=== PATIENT | female | born 1945 | race Caucasian/White ===

== ENCOUNTER 2024-09-18 16:31 | Inpatient (IN) | payer OTHER ==
[2024-09-19] MEDS: lamoTRIgine 25 MG TAB PO SCH (20:00)
[2024-09-19] MEDS ORDERED: LANTUS 30 UNIT SQ SCH (20:00)
[2024-09-19] MEDS ORDERED: AMLODIPINE 2.5 MG TAB PO SCH (21:00)
[2024-09-19] MEDS ORDERED: INSULIN REGULAR (HUMAN) 100 UNIT/ML SQ SCH (21:00)
[2024-09-19] MEDS: INSULIN GLARGINE 100 UNIT/ML SQ SCH (21:13)
[2024-09-19] MEDS: MINOCYCLINE HCL 50 MG CAP PO SCH (21:14)
[2024-09-19] MEDS: APIXABAN 2.5 MG TABLET PO SCH (21:14)
[2024-09-19] MEDS: PREGABALIN 75 MG CAP PO SCH (21:14)
[2024-09-19] MEDS: FERROUS SULFATE 325 MG TAB PO SCH (21:15)
[2024-09-19] MEDS: MELATONIN 3 MG TABLET PO SCH (21:15)
[2024-09-19] MEDS: ATORVASTATIN 80 MG TAB PO SCH (21:15)
[2024-09-20 00:38] LABS: Sqamous Epithelial <5 /HPF (None Seen); Urine Culture Reflex Order NOT NEEDED; Urine Microscopic Reflex YN ORDER UMIC; Urine WBC Clump Rare /HPF (None Seen)
[2024-09-20 06:44] LABS: Absolute Lymphocytes (CBC) 3.2 K/uL (0.7-4.9); Albumin 2.5 g/dL (3.4-5.0); Anion Gap 9.5 mEq/L (5.0-15.0); BUN Blood Urea Nitrogen 56.0 mg/dL (7-18); Glucose Level 197.0 mg/dL (74-106); Hematocrit 25.2 % (36.0-45.0); Hemoglobin 8.4 g/dL (12.0-15.0); MCH 28.8 pg (27.0-35.0); MCHC 33.6 g/dL (32.0-36.0); MCV 86.0 fL (80-100); MPV 8.3 fL (7.6-11.3); Magnesium 2.1 mg/dL (1.6-2.4); NT PRO-BNP 1436.0 pg/mL (<450); Nucleated RBC Absolute Count 0.0 (0-0); Nucleated Red Blood Cells % 0.1 % (0-0); Potassium 4.5 mEq/L (3.5-5.1); Prealbumin 14.0 mg/dL (20-40); RBC Red Blood Cell Count 2.93 M/uL (3.86-4.86); White Blood Count 9.00 thou/uL (4.3-10.9)
[2024-09-20] MEDS: LEVOTHYROXINE SOD 0.05 MG TABLET PO SCH (07:00)
[2024-09-20] MEDS: INSULIN REGULAR (HUMAN) 100 UNIT/ML SQ SCH (07:30)
[2024-09-20] MEDS ORDERED: CLOPIDOGREL 75 MG TABLET PO SCH (08:00)
[2024-09-20] MEDS: THIAMINE HCL 100 MG TABLET PO SCH (09:07)
[2024-09-20] MEDS: ASPIRIN 81 MG CHEWABLE TABLET PO SCH (09:07)
[2024-09-20] MEDS: AMLODIPINE 5 MG TAB PO SCH (09:07)
[2024-09-20] MEDS: PANTOPRAZOLE 40MG TABLET PO SCH (09:07)
[2024-09-20] MEDS: ISOSORBIDE MONO SR 30 MG TAB PO SCH (09:07)
[2024-09-20] MEDS: DULOXETINE 30 MG CAP PO SCH (09:08)
[2024-09-20] MEDS: TRAZODONE 50 MG TABLET PO SCH (21:10)
[2024-09-20] MEDS: HYDROCODONE/APAP 5/325 MG TAB PO PRN (21:12)
--- NOTE | 2024-09-21 05:34 | HP ---
Date of Admission: 09/19/2024 Time Of Service: 1:00 p.m. Chief Complaint: "I had a stroke. I have lost coordination, fall to the right. I need to get stron evan." History Of Present Illness: Ms. Collado is a 79-year-old patient with CHF, diabetes mellitus, dyslipi demia, hypertension, chronic stage 3 kidney disease and prior stroke, who is now in inpatient rehab w ith a right posterior inferior cerebellar artery infarct, which occurred in January 2024. She of co onelia had multiple stroke risk factors and comorbid conditions. Initially after her stroke, she was discharged to half-way facility where she completed a course of therapy before returning home with home health services. Despite these interventions, she experienced progressive functional decl ine leading to multiple hospitalizations over 6 months due to decrease in the mobility and debility. She was eventually discharged from Home Health with limited progress attributed to her complex medic al conditions. While pending an approval for inpatient rehabilitation, she saw chief medical technologist, Dr. Ritchie shin, and was advised to have a pacemaker placed. Pacemaker was placed on the September 07 without complica tions. She is currently in an arm sling per Dr. Medina and is able to actively participate rehabilita tion and will be discharged with the use of the sling. She is restricted to not lift anything above 10 pounds with the left arm. Furthermore, her medical course has been complicated and on September 17 at [facility], she had multiple falls and was diagnosed with urinary tract infection. She receiv ed IV Rocephin for 7 days ending on the September 20. Chest x-rays were negative. Hemoglobin and hem atocrit did show moderately low hemoglobin of 7.2 and she has chronic renal insufficiency with BUN 62 , creatinine baseline around 1.5-6. She had mildly elevated sugars 149. Given her medical issues, tanya oakley need to be monitored and addressed during aggressive inpatient rehabilitation. Regarding the stroke, she does have nausea, dizziness, difficulty with balance, coordination given he r stroke is on the right posterior circulation and affecting her coordination, balance, and gait. Edward hernandez has significant functional limitations with multiple falls and inability to perform any activities of daily living such as cooking, cleaning, laundry due to significant imbalance and high risk of fall ing. Ambulation is unsafe as she falls about 3-5 times weekly. She has had some episodes of in her bed trauma, but none resulted in bleeding. She has now had evaluation by the therapy service, referr ed for inpatient rehabilitation by her neurologist, Dr. Jcarlos Klein, after exhausting outpatient ther apy and Home Health to return to her prior level of functioning and to reduce her risk of falling and being able to mobilize safely. She is therefore admitted to the inpatient rehabilitation unit for physical therapy. Past Medical History: As noted above. Past Surgical History: Cholecystectomy, cardiac catheterization, amputation of the left great toe. Allergies: IODINE, MORPHINE, , ONION, AND DIAZEPAM. Current Medications: Norvasc 5 mg daily, Eliquis 2.5 mg twice daily, aspirin 81 mg daily, Lipitor 80 mg at bedtime, Coreg 6.25 mg twice daily, duloxetine 30 mg daily, ferrous sulfate 325 mg daily, Norc o 5/325 every 4 hours as needed, Semglee insulin 30 units twice daily, Imdur 30 mg daily, Lamictal 25 mg twice daily, Synthroid 0.05 mg daily, melatonin 6 mg at bedtime, minocycline 100 mg twice daily, Protonix 40 mg daily, Lyrica 75 mg at bedtime, thiamine 100 mg daily, and trazodone 25 mg at bedtime. Laboratory Studies: White blood cell count 9.0, hemoglobin 8.4, platelets 205. Her basic metabolic panel, sodium 145, potassium 4.4, chloride 117, carbon dioxide 23, BUN 56, creatinine 2.45. Now, she was followed by Dr. Whelan for few years for renal insufficiency. She will be consulted to help wi th management. Her blood sugars ranged from 158 to 197. Hemoglobin A1c 7.3. Calcium 8.7. Magnesiu m 2.1. Beta-natriuretic peptide elevated to 1436. Albumin decreased to 2.5, prealbumin decreased to 14.0. Her urinalysis, 1+ glucose, 200 esterases. X-ray/imaging: She had an MRI of the brain on 05/13/2024, which shows no acute stroke. Evident was old infarct in the right cerebellar hemisphere with volume loss. She also had x-ray of the left foot and ankle on showed no acute bony abnormalities. Family History: Noncontributory. Social History: No alcohol, tobacco, or drug use. The patient intends to go back and live independe ntly in single family home. Review of Systems: She noticed falling to the right, incoordination in balance and problems to some nausea and vomiting. In terms of some unsteadiness of course and coordination, especially in the right upper and lower e xtremities. In terms of other review of systems issues, no fevers or chills. No significant myalgia s, arthralgias. No rash. No dermatological issues or pulmonary, GI, or big complaints currently, although she has a renal insufficiency as noted. Current Level Of Functioning: Currently, she is setup assistance for eating, grooming. She has mode rate assistance for bathing, supervision for upper body dressing, moderate assistance for lower body dressing and donning and doffing footwear. Toileting, she is at a supervision level. Transfers from bed to chair, to wheelchair, supervision and for ambulation, she covered 50 feet with supervision us ing a rolling walker. Physical Examination: Vital Signs: Blood pressure is 139/69, pulse 60, respiratory rate 16, temperature 97.7, oxygen satur ation 97%. Weight 196 pounds, height 5 feet 4 inches, BMI 23.6. General: Ms. Collado is lying in bed on her left side. She is in no acute distress. HEENT: She does appear normocephalic, atraumatic. Sclerae anicteric. Oropharynx pink and moist. Neck: Supple. Chest: Clear. Heart: Regular. Neurological: She has incoordination with dysmetria, past-pointing in the right and lower extremity, difficulty with [id number] in the right lower extremity and otherwise in terms of cranial nerves n o obvious focal deficits there. She has good strength and intact sensation upper and lower extremiti es. Rehab And Medical Assessment And Plan: Ms. Collado is a 79-year-old patient admitted to the inpatient rehabilitation unit with impairment category 01, stroke. Impairment group code is 01.1, left body i nvolvement right brain. Etiologic diagnosis, right posterior inferior cerebral artery stroke. Her c omorbid conditions, decreased mobility; decreased physical functioning; CHF, diastolic; diabetes daina itus; dyslipidemia; hypertension; chronic stage 3 kidney disease. Note, she has had urinary tract in fection and received Rocephin, although a repeat urinalysis done. In terms of plan, she will have ph ysical, occupational, and if need be speech therapy 3.5 hours, 5 of 7 days. She will continue list o f medications, which have been noted above including Eliquis 2.5 mg twice daily for DVT prophylaxis, aspirin 81 mg daily for stroke risk reduction, Lipitor 80 mg at bedtime for dyslipidemia. Continue N orvasc for blood pressure control, Harvey for pain, Coreg also for blood pressure control, Cymbalta fo r neuropathic pain, ferrous sulfate for iron deficiency, Semglee insulin as noted 30 units subcutaneo usly twice daily for diabetes mellitus, Imdur for chest discomfort and pain, Lamictal 25 mg twice blaze ly for mood stabilization, Synthroid 0.05 mg daily for hypothyroidism, melatonin for insomnia along w ith trazodone, which she said she had some difficulty sleeping last night. She has Lyrica 75 mg twic e daily for neuropathic pain. She has Protonix for GE reflux, thiamine 100 mg daily. Comorbidities That Are Impacting Rehabilitation: Of course, the biggest issue is a stroke from which she has incoordination especially on the right side, the right cerebellum involved. She does have d iabetes mellitus as noted. She has chronic renal insufficiency. Dr. Whelan of the renal service wi ll see the patient, will be consulted to help her management. Rehab Specific Plan: Ms. Collado will have physical, occupational, and maybe speech therapy 3.5 hours , 5 of 7 days to improve her ability to transfer from the bed to a wheelchair, to a rolling walker. She will go on and off the toilet, in and out of shower. Work on dressing of upper and lower body, d onning and doffing footwear. Work on incoordination and difficulty of mobilizing as she has fallen 3 -5 times weekly from the right cerebellar stroke. It may be difficult for her to be able to be indep endent without the use of assistive device such as a walker, but it will be highly encouraged. Ms. Collado has a good understanding of the process of admission to the inpatient rehabilitation unit and how she will benefit from physical, occupational, and if need be speech therapy. She will have 2 4 hours a day, 7 days a week skilled rehabilitation nursing, daily physician evaluation and managemen t, and licensed clinical social worker evaluation and management for discharge planning, home equipment, and to cassius nue with therapy. If need be, the hospitalist service and already the renal service is on board. Barriers To Discharge: Occasionally falling significantly and the stroke was in January. At this p oint, it may be very difficult for her to be fully independent as she is now 8 months out of the [facility] and still has significant incoordination. However, with very aggressive therapy, she may be able to improve and become safe for ambulation. Length Of Stay: About 2 weeks. Disposition: Expected to go home with continued therapy via Home Health. Prognosis: Good. Code Status: Full code. Rehab Specific Goals: 1. Become independent with upper and lower body dressing and donning doffing footwear. 2. Independently perform activities of daily living. 3. Independently mobilize a wheelchair 250 feet, ambulate with a rolling walker 250 feet, and go up a nd down 10 steps with bilateral handrails. 4. Independently perform all cognitive functioning and safety awareness issues and like to manage all medical conditions, optimization. The above goals were reviewed with Ms. Collado and she is in agreement. By signing this document, I acknowledge I personally performed a full physical examination on Ms. Lebron no later than 24 hours after her admission to the inpatient rehabilitation unit and determined th at she is able to tolerate the above course of treatment at an intensive level for reasonable period of time. A detailed individualized plan of care for her will be completed by hospital day 4 based on the preadmission screen, history and physical, and therapy evaluation. MEKA Voice ID: [id number]
--- NOTE | 2024-09-21 20:30 | P.PN ---
Nephrology note (S) Pls see my recent consult note at [facility] done on 09/14/24 for full details, pt well known to service and is Dr. Whelan's clinic pt and has had several hospitalizations over the past 1.5 years and appears to have been sent to [facility] rehab in the setting of recent falls, hx of dizziness, gait instability following CVA late last yr and with long standing diabetic hakeem yneuropathy/autonomic dysfunction, other (O) vitals reviewed in the EMR Pt seen lying in bed earlier this AM on rounds, NAD, non tachypnec, not needing O2, b/l air entry, no rales, RRR, left upper PPM site without swelling or redness. Abd soft, ND, NT. No sig LE edema, shins non tender. Pt awake, alert, conversive, non tremulous Labs reviewed in the EMR A/P) 1. Hx of recent and recurrent Stage 1 AICHA episodes in the setting of chronic, underlying advanced CKD Stage IV 2nd to chronic DM/HTN. AICHA episodes mostly pre- renal episodes in the setting of chronic diuretic use, relative BP lowering, o ther. 2. Cr level closer to baseline range, cont to monitor periodically 3. Chronic HTN with CKD -hx of labile BP, monitor for any orthostatic symptoms. Cont lower dose CCB, use holding parameters. Have avoided LEDY inhibitors due to the above mentioned. With hx of CVA, target BP at least < 140/90 4. Hx of diastolic dysfunction, hx of intermittent, peripheral edema -monitor fluid status closely, cont low Na diet, currently off scheduled diuretics 5. Anemia 2nd to CKD and iron deficiency -IV iron doses ordered at [facility], will order TEETEE dose here since Hb remains < 10
--- NOTE | 2024-09-22 00:10 | PN ---
Date of Progress Note: 09/21/2024 Time Of Service: 1:15 p.m. Subjective: Ms. Collado is doing very well. Had lots of questions about her progress. She is admitt ed with right posterior inferior cerebral artery stroke and has incoordination on the right side of u pper and lower extremity, but otherwise had preserved strength. Questions were discussed at length a nd the patient was happy at the end of discussion. Review of Systems: No fevers, chills, nausea, vomiting. No myalgias, arthralgias, or rash. No psychiatric complaints. Physical Examination: Vital Signs: Blood pressure 137/59, pulse 60, respiratory rate 18, temperature 97.2, oxygen saturati on 96%. Weight 196 pounds, height 5 feet 4 inches, BMI 33.6. General: Ms. Collado is in the gym area working with the occupational therapist. She is in no signif icant distress. HEENT: She is normocephalic, atraumatic. Sclerae anicteric. Neuro: She has incoordination in the right upper and lower extremity involving her stroke and diffic ulty with balance, gait, coordination. Laboratory Studies: White blood cell count 9.0, hemoglobin 8.4, platelets 205, blood sugars range fr om 109 to 155. X-ray/imaging: No new x-rays or imaging. Medications: Willis 5/325 every 4 hours as needed, amlodipine 5 mg daily, Eliquis 2.5 mg twice daily, aspirin 81 mg daily, Lipitor 80 mg at bedtime, Coreg 6.25 mg twice daily, Cymbalta 30 mg daily, ferr ous sulfate 325 mg daily, Semglee insulin 30 units twice daily, Imdur 30 mg daily, Lamictal 25 mg twi ce daily, Synthroid 0.05 mg daily, lidocaine 2 patches daily, melatonin 6 mg at bedtime, minocycline 100 mg twice daily. She is followed by Dr. Ramos and the patient was seen by Dr. Ramos on the Renal Service and is follow ed for diabetic polyneuropathy, autonomic dysfunction, and has stage I acute renal injury on top of c hronic stage IV renal injury. Progress Made With Physical And Occupational Therapy: With physical therapy, she completed bed mobil ity including turning in bed, supine to sit, and scooting with contact guard to standby assistance. She ambulated 200 feet and another 175 feet with contact guard to standby assistance using a rolling walker. She was up and down 15 steps with contact guard assistance. She has shortness of breath aft er the 15 steps. She mobilized a wheelchair 150 feet and 100 feet 3 times with contact guard to mini mum assistance on surfaces. With occupational therapy, independent with bed transfers, si t-to-stand transition, and she was contact guard for using the walker. Assessment And Plan: Ms. Collado is a 79-year-old patient in rehabilitation unit with a right posteri or inferior cerebral artery stroke. She is making fair overall progress in terms of recovery of her coordination, balance, gait, strength, and endurance. She is followed by the Renal Service for chron ic stage 4 kidney disease. She still has decreased mobility, decreased physical functioning, hypothy roidism, insomnia, constipation, diabetes mellitus, depression, anxiety, dyslipidemia, stroke risk, a nd pain. Her plan will be to continue with physical and occupational therapy. Continue with all of her comorbid condition medications and she is also by the Renal Service. MICKY/SEYMOUR Voice ID: [id number] Report ID: [id number]
[2024-09-22 05:33] LABS: Absolute Lymphocytes (CBC) 3.0 K/uL (0.7-4.9); Hematocrit 21.8 % (36.0-45.0); Hemoglobin 7.3 g/dL (12.0-15.0); MCH 29.3 pg (27.0-35.0); MCHC 33.6 g/dL (32.0-36.0); MCV 87.1 fL (80-100); MPV 8.3 fL (7.6-11.3); Nucleated RBC Absolute Count 0.0 (0-0); Nucleated Red Blood Cells % 0.0 % (0-0); RBC Red Blood Cell Count 2.50 M/uL (3.86-4.86); White Blood Count 9.20 thou/uL (4.3-10.9)
[2024-09-22 06:02] LABS: Albumin 2.5 g/dL (3.4-5.0); Anion Gap 9.2 mEq/L (5.0-15.0); BUN Blood Urea Nitrogen 69.0 mg/dL (7-18); Glucose Level 173.0 mg/dL (74-106); Magnesium 2.3 mg/dL (1.6-2.4); Potassium 4.2 mEq/L (3.5-5.1); Prealbumin 13.4 mg/dL (20-40)
[2024-09-22] MEDS: FE SULF/FA/VIT B COMP & C TAB PO SCH (08:17)
[2024-09-22] MEDS: EPOETIN ALFA-EPBX 10,000 UNIT/ML VIAL SQ ONE ×2 (08:19→08:20)
[2024-09-22] MEDS: LIDOCAINE 4% PATCH TOP SCH (08:19)
--- NOTE | 2024-09-22 23:35 | PN ---
Date of Progress Note: 09/22/2024 Time: 1:10 p.m. Subjective: Ms. Collado is doing very well, mobilizing around the unit. Her coordination, balance, a nd gait are improving. She has no new complaints. She is so far happy. Review of Systems: No fevers, chills, nausea, vomiting, myalgias, arthralgias. Physical Examination: Vital Signs: Blood pressure 140/58, pulse 69, respiratory rate 18, temperature 98, oxygen saturation 98%. General: Ms. Collado is doing well. She is in no significant distress. HEENT: She appears normocephalic, atraumatic. Sclerae anicteric. Oropharynx moist. Neck: Supple. Chest: Clear. Laboratory Studies: White blood cell count 9.2, hemoglobin 7.3, platelets are 180. Potassium 4.2, s odium 141, chloride 113, BUN 69, creatinine 2.65, glucose ranged from 89 to 173, calcium 8.2. Magnes ium 2.3. Albumin 2.5, prealbumin 30.4. The patient is being followed by the renal service, Dr. Ramos. The patient at this point, there is a question about potential dialysis and placement of a central access that will be likely done after t he patient is discharged. It is noted that her creatinine has been stable for at least 2 years when looking back in the chart. X-rays/imaging: No new x-rays or imaging. Medications: Have been reviewed and remain unchanged. She of course has a lidocaine patch on board for pain and she completed minocycline 100 mg twice daily from 09/19 to 09/22, six doses were given. Progress Made With Physical And Occupational Therapy: With physical therapy, she did mobilize with t he rolling walker 200 feet and 300 feet with contact guard assistance. She was up and down 20 steps with bilateral handrails with contact guard assistance and mobilized wheelchair 200 feet and 100 feet with supervision. With occupational therapy, independent for bed mobility from edge of bed transfer ; independent for shower transfers; toilet transfer using grab bars; independent for upper and lower body dressing, donning and doffing footwear. She is doing very well. Assessment And Plan: Ms. Collado is a 79-year-old patient with a right posterior inferior cerebellar artery infarct and she did excellent in terms of recovery. She does have comorbid conditions, mild d ecreased mobility, mild decreased physical functioning, neuropathic pain, hypothyroidism, diabetes me llitus, hypertension, dyslipidemia, stroke risk. Plan will be to continue with physical and occupati onal therapy 3 hours a day, 5 of 7 days. Continue list of comorbid condition medications including a spirin, Eliquis, Norvasc, Coreg, Lehr. She has duloxetine for mood and neuropathy. Lamictal on [address]a rd for mood stabilization. She has Synthroid for hypothyroidism, melatonin for insomnia, Hemocyte Pl us for low iron, Lyrica for neuropathic pain and thiamine on board as well. We will continue all of her medications and therapy as noted above. MICKY/SEYMOUR Voice ID: [id number] Report ID: [id number]
[2024-09-23 04:32] LABS: Absolute Lymphocytes (CBC) 3.0 K/uL (0.7-4.9); Hematocrit 21.3 % (36.0-45.0); Hemoglobin 7.1 g/dL (12.0-15.0); MCH 29.0 pg (27.0-35.0); MCHC 33.4 g/dL (32.0-36.0); MCV 86.8 fL (80-100); MPV 8.5 fL (7.6-11.3); Nucleated RBC Absolute Count 0.0 (0-0); Nucleated Red Blood Cells % 0.0 % (0-0); RBC Red Blood Cell Count 2.46 M/uL (3.86-4.86); White Blood Count 8.70 thou/uL (4.3-10.9)
[2024-09-23] MEDS: LIDOCAINE 4% PATCH TOP SCH (07:54)
[2024-09-23] MEDS ORDERED: ONDANSETRON 4 MG (ODT) TAB PO PRN (09:34)
[2024-09-23] MEDS: ONDANSETRON 4 MG (ODT) TAB PO PRN (09:43)
--- NOTE | 2024-09-23 11:34 | P.PN ---
Nephrology note (S) Pls see my recent consult note at [facility] done on 09/14/24 for full details, pt well known to service and is Dr. Whelan's clinic pt and has had several hospitalizations over the past 1.5 years and appears to have been sent to [facility] rehab in the setting of recent falls, hx of dizziness, gait instability following CVA late last yr and with long standing diabetic hakeem yneuropathy/autonomic dysfunction, other 09/23/24: Pt seen during PT session, appears pale, does cite greater fatigue with exertion today, not needing O2, drop in H/H discussed, apparently pt did get a 1 unit PRBC at [facility] last weekend prior to discharge here. (O) vitals reviewed in the EMR Pt seen lying in bed earlier this AM on rounds, NAD, non tachypnec, not needing O2, b/l air entry, no rales, RRR, left upper PPM site without swelling or redness. Abd soft, ND, NT. No sig LE edema, shins non tender. Pt awake, alert, conversive, non tremulous Labs reviewed in the EMR A/P) 1. Hx of recent and recurrent Stage 1 AICHA episodes in the setting of chronic, underlying advanced CKD Stage IV 2nd to chronic DM/HTN. AICHA episodes mostly pre- renal episodes in the setting of chronic diuretic use, relative BP lowering, other. 2. Cr level closer to baseline range currently, cont to monitor periodically 3. Chronic HTN with CKD -hx of labile BP, monitor for any orthostatic symptoms. Cont lower dose CCB, use holding parameters. Have avoided LEDY inhibitors due to the above mentioned. With hx of CVA, target BP at least < 140/90 4. Hx of diastolic dysfunction, hx of intermittent, peripheral edema -monitor fluid status closely, cont low Na diet, currently off scheduled diuretics 5. Anemia 2nd to CKD and iron deficiency -IV iron doses ordered at [facility], and apparent 1 unit PRBC, did order TEETEE dose here earlier in the week however concerningly H/H has further dropped. Pt is on ASA and Eliquis and has higher risk for GI bleeding. Will send off type and screen, will eval for repeat transfusion within the next 24h. May have to suspend Eliquis if there is recurrent drops in H/H
--- NOTE | 2024-09-23 12:38 | P.RH.PN ---
Estimated Length of Stay: 10 Expected Discharge Date: 09/28/24 Discharge Disposition Plan: Home Family Support: Yes Care Home Goal: Mobility, Transfers, Self Care Vital Signs: Last Vital Signs Temp 98.2 F 09/23/24 07:02 Pulse 62 09/23/24 07:02 Resp 18 09/23/24 07:02 BP 119/43 L 09/23/24 07:02 Pulse Ox 100 09/23/24 07:02 Laboratory: Laboratory Last Values WBC 8.70 thou/uL (4.3-10.9) 09/23/24 04:07 RBC 2.46 M/uL (3.86-4.86) L 09/23/24 04:07 Hgb 7.1 g/dL (12.0-15.0) L 09/23/24 04:07 Hct 21.3 % (36.0-45.0) L 09/23/24 04:07 MCV 86.8 fL (80-100) 09/23/24 04:07 MCH 29.0 pg (27.0-35.0) 09/23/24 04:07 MCHC 33.4 g/dL (32.0-36.0) 09/23/24 04:07 RDW 17.0 % (12.1-15.2) H 09/23/24 04:07 Plt Count 169 thou/uL (152-406) 09/23/24 04:07 MPV 8.5 fL (7.6-11.3) 09/23/24 04:07 Neutrophils % 55.0 % (41.7-73.7) 09/23/24 04:07 Lymphocytes % 34.5 % (15.3-44.8) 09/23/24 04:07 Monocytes % 7.3 % (3.3-12.3) 09/23/24 04:07 Eosinophils % 2.7 % (0-4.4) 09/23/24 04:07 Basophils % 0.5 % (0-1.3) 09/23/24 04:07 Absolute Neutrophils 4.8 K/uL (1.8-8.0) 09/23/24 04:07 Absolute Lymphocytes 3.0 K/uL (0.7-4.9) 09/23/24 04:07 Absolute Monocytes 0.6 K/uL (0.1-1.3) 09/23/24 04:07 Absolute Eosinophils 0.2 K/uL (0-0.5) 09/23/24 04:07 Absolute Basophils 0.0 K/uL (0-0.5) 09/23/24 04:07 Sodium 141 mEq/L (136-145) 09/22/24 04:57 Potassium 4.2 mEq/L (3.5-5.1) 09/22/24 04:57 Chloride 113 mEq/L (98-107) H 09/22/24 04:57 Carbon Dioxide 23 mEq/L (21-32) 09/22/24 04:57 Anion Gap 9.2 mEq/L (5.0-15.0) 09/22/24 04:57 BUN 69 mg/dL (7-18) H 09/22/24 04:57 Creatinine 2.65 mg/dL (0.55-1.02) H 09/22/24 04:57 Est GFR (CKD-EPI) 18 ml/min (=/>90) L 09/22/24 04:57 Glucose 173 mg/dL (74-106) H 09/22/24 04:57 POC Glucose 161 mg/dL (65-120) H 09/23/24 11:35 Hemoglobin A1c 7.3 % (4.2-6.3) H 09/20/24 07:13 Calcium 8.2 mg/dL (8.5-10.1) L 09/22/24 04:57 Magnesium 2.3 mg/dL (1.6-2.4) 09/22/24 04:57 NT-Pro-B Natriuret Pep 1436 pg/mL (<450) H 09/20/24 06:07 Albumin 2.5 g/dL (3.4-5.0) L 09/22/24 04:57 Prealbumin 13.4 mg/dL (20-40) L 09/22/24 04:57 Urine Color Colorless (Yellow) 09/20/24 00:10 Urine Clarity Clear (Clear) 09/20/24 00:10 Urine pH 5.0 (5.0-7.0) 09/20/24 00:10 Ur Specific [place] 1.006 (1.005-1.030) 09/20/24 00:10 Glucose (UA)(Auto) 1+ (Negative) H 09/20/24 00:10 Urine Ketones Negative (Negative) 09/20/24 00:10 Urine Blood Negative (Negative) 09/20/24 00:10 Urine Nitrite Negative (Negative) 09/20/24 00:10 Urine Bilirubin Negative (Negative) 09/20/24 00:10 Urine Urobilinogen Normal (Normal) 09/20/24 00:10 Ur Leukocyte Esterase 250 Ariel/uL (Negative) H 09/20/24 00:10 Urine RBC <5 /HPF (None Seen) 09/20/24 00:10 Urine WBC 5-10 /HPF (<5) 09/20/24 00:10 Urine WBC Clumps Rare /HPF (None Seen) 09/20/24 00:10 Ur Squamous Epith Cells <5 /HPF (None Seen) 09/20/24 00:10 Urine Bacteria <20 /HPF (<20) 09/20/24 00:10 Urine Culture Reflexed Not needed 09/20/24 00:10 Urine Total Protein Negative (Negative) 09/20/24 00:10 Weight: 196 lb Wound Present: No Closed Surgical Incision Present: Yes Physician Update: Labs reviewed. She has low H&H due to chronic. [place]. BIMS 15. Plans to go home with home health. Independent bed mobility, supervision for picking up things. Supervision for car transfers. RW 250' with CGA, WC 200' supervision. 4/4 STG, 2/5 LTG. She still has balance problems. Summary: Patient's care plan and snf goals have been reviewed and revised as necessary. Please see the Rehabilitation Signature page for all necessary signatures.
[2024-09-24 05:09] LABS: Hematocrit 21.9 % (36.0-45.0); Hemoglobin 7.4 g/dL (12.0-15.0); MCH 29.3 pg (27.0-35.0); MCHC 33.6 g/dL (32.0-36.0); MCV 87.2 fL (80-100); MPV 8.4 fL (7.6-11.3); RBC Red Blood Cell Count 2.51 M/uL (3.86-4.86); White Blood Count 7.40 thou/uL (4.3-10.9)
--- NOTE | 2024-09-24 11:32 | P.PN ---
Nephrology note (S) Pls see my recent consult note at [facility] done on 09/14/24 for full details, pt well known to service and is Dr. Whelan's clinic pt and has had several hospitalizations over the past 1.5 years and appears to have been sent to [facility] rehab in the setting of recent falls, hx of dizziness, gait instability following CVA late last yr and with long standing diabetic hakeem yneuropathy/autonomic dysfunction, other 09/23/24: Pt seen during PT session, appears pale, does cite greater fatigue with exertion today, not needing O2, drop in H/H discussed, apparently pt did get a 1 unit PRBC at [facility] last weekend prior to discharge here. 09/24/24: Tired after PT but denies dyspnea, not needing O2, dizziness/gait unsteadiness improved. (O) vitals reviewed in the EMR Pt seen lying in bed earlier this AM on rounds, NAD, non tachypnec, not needing O2, b/l air entry, no rales, RRR, left upper PPM site without swelling or redness. Abd soft, ND, NT. No sig LE edema, shins non tender. Pt awake, alert, conversive, non tremulous Labs reviewed in the EMR A/P) 1. Hx of recent and recurrent Stage 1 AICHA episodes in the setting of chronic, underlying advanced CKD Stage IV 2nd to chronic DM/HTN. AICHA episodes mostly pre- renal episodes in the setting of chronic diuretic use, relative BP lowering, other. 2. Cr level closer to baseline range currently, cont to monitor periodically 3. Chronic HTN with CKD -hx of labile BP, monitor for any orthostatic symptoms. Cont CCB, will cautiously titrate dose to 5 mg BID to address higher BP at times but will use holding parameters. Have avoided LEDY inhibitors due to the above mentioned. With hx of CVA, target BP at least < 140/90 4. Hx of diastolic dysfunction, hx of intermittent, peripheral edema -monitor fluid status closely, cont low Na diet, currently off scheduled diuretics 5. Anemia 2nd to CKD and iron deficiency -IV iron doses ordered at [facility], and apparent 1 unit PRBC, did order TEETEE dose here earlier in the week however con cerningly H/H has further dropped. Pt is on ASA and Eliquis and has higher risk for GI bleeding. DId send off type and screen, will eval for repeat transfusion within the next 24h. May have to suspend Eliquis if there is recurrent drops in H/H
--- NOTE | 2024-09-24 18:44 | P.PN ---
Subjective Date of Service: 09/24/24 Patient has no new complaint. She has been tolerating physical therapy well. She denies any pain. Physical Examination - Vital Signs Temperature: 97.8 F Blood Pressure: 149/60 Pulse: 65 Respirations: 16 Pulse Ox (%): 97 - Studies Laboratory Data (last 24 hrs) 09/24/24 04:47 WBC 7.40 Hgb 7.4 L Hct 21.9 L Plt Count 180 Assessment And Plan - Plan Physical examination General: Alert and oriented x3, NAD, Neck: Supple, no elevated JVD Heart: Heart sounds 1 and 2 normal, regular rhythm, normal rate, no pedal edema Lungs: Clear to auscultation bilaterally, adequate breath sounds bilaterally, no rhonchi or crackles. Abdomen: Soft, nondistended, nontender, normal bowel sounds. Extremities: No tenderness, no deformity Skin: Normal skin turgor, no rash, no nodules or ulcers. Neuro: No focal motor deficit. Normal speech. Psychiatry: Normal mood, no agitation. X-ray/imaging: No new imaging studies. Medications: Her medications have been reviewed today. Progress Made With Physical And Occupational Therapy: pt performed unsupported standing balance activities. pt maintained balance against MIN <-> MOD PT resistance and perturbations. Techniques performed to enhance patient's stepping response as she was unable to elict one yesterday. After train today. pt demonstrated ability to elicit a stepping response in order to effectively recover balance. pt participated in gait training 150' and 300' Independently using a rollator. Emphasis on reduced support on the rollator in order to make movement more smooth. Pt was IND in shower transfer using the grab bar. IND in STS transition and walking with rollator. Pt was MIN A in UB dressing, assist in donning and doffing a bra due to pacemaker precaution, IND in LB dressing and donning and doffing socks. IND in showering task, demonstrated safety awareness using the grab bar when standing/ while standing up. Pt is IND in oral hygiene, toileting task and eating. Pt engaged in hand strengthening activities to improve the use of hands needed in dressing, and other ADL tasks. Pt linked 15 shower rings, linked and unlinked 10 pieces of hook carabs and other links, crumpled 2 half sheets of paper into paper ball and opened them up in each hand. To improve balance, pt completed cross lateral movements of UEs and LE's with support 10x 2 reps. Assessment: Diagnosis:Posterior inferior cerebellar artery infarct Plan: 1. Continue with physical, occupational, and speech therapy for 3.5 hours, 5 of 7 days. 2. She has multiple comorbid conditions and those are addressed by continuing all of her medications including Comorbidities That Are Impacting Her Rehabilitation: neuropathic pain hypothyroidism diabetes mellitus hypertension Dyslipidemia Will continue [place], Lyrica and duloxetine for pain. Patient is on Lamictal for mood stabilization. Continue Synthroid for hypothyroidism Titrate antihypertensives for blood pressure control.
[2024-09-24] MEDS ORDERED: BISACODYL 10 MG RECTAL SUPP PR PRN (20:08)
[2024-09-24] MEDS ORDERED: MAGNESIUM HYDROXIDE 8% 30 ML PO PRN (20:08)
[2024-09-24] MEDS: AMLODIPINE 5 MG TAB PO SCH (20:45)
[2024-09-25 05:09] VITALS: BMI 37.8
[2024-09-25 05:39] LABS: Hematocrit 20.4 % (36.0-45.0); Hemoglobin 6.8 g/dL (12.0-15.0); MCH 29.2 pg (27.0-35.0); MCHC 33.4 g/dL (32.0-36.0); MCV 87.4 fL (80-100); MPV 8.8 fL (7.6-11.3); RBC Red Blood Cell Count 2.34 M/uL (3.86-4.86); White Blood Count 7.90 thou/uL (4.3-10.9)
[2024-09-25 06:57] VITALS: TEMP 97.4
[2024-09-25] MEDS: DOCUSATE NA/SENNA CONC 1 TAB PO SCH (08:00)
[2024-09-25] MEDS: POLYETHYL GLY 3350 17 GM/DOSE PO SCH (08:46)
[2024-09-25] MEDS ORDERED: NA CHLORIDE 0.9% 250 ML IV SCH (10:00)
[2024-09-25 14:09] VITALS: BP 142/76
[2024-09-25] MEDS: FUROSEMIDE 20 MG/ 2ML VIAL IV ONE (14:09)
[2024-09-25 17:07] LABS: Hematocrit 24.9 % (36.0-45.0); Hemoglobin 8.3 g/dL (12.0-15.0)
== END 2024-09-25 16:35 | disposition home health service (06) | DRG 57 ==
LOC: 5TH 09-19 18:35
PROVIDERS: ADMIT Psychiatry & Neurology Neurology with Special Qualifications in Child Neurology; ATTEND Psychiatry & Neurology Neurology with Special Qualifications in Child Neurology
PROC: 30233N1 Transfusion of Nonautologous Red Blood Cells into Peripheral Vein, Percutaneous Approach (ICD-10-PCS; principal; 2024-09-25)
DX: I69.398 Other sequelae of cerebral infarction (principal); I13.0 Hypertensive heart and chronic kidney disease with heart failure and stage 1 through stage 4 chronic kidney disease, or unspecified chronic kidney disease; I50.30 Unspecified diastolic (congestive) heart failure; N17.9 Acute kidney failure, unspecified; N18.4 Chronic kidney disease, stage 4 (severe); R27.8 Other lack of coordination; R26.89 Other abnormalities of gait and mobility; R26.81 Unsteadiness on feet; R53.81 Other malaise; E11.22 Type 2 diabetes mellitus with diabetic chronic kidney disease; E11.42 Type 2 diabetes mellitus with diabetic polyneuropathy; D63.1 Anemia in chronic kidney disease; R11.2 Nausea with vomiting, unspecified; E78.5 Hyperlipidemia, unspecified; E61.1 Iron deficiency; G47.00 Insomnia, unspecified; E03.9 Hypothyroidism, unspecified; K21.9 Gastro-esophageal reflux disease without esophagitis; K59.00 Constipation, unspecified; F32.A Depression, unspecified; F41.9 Anxiety disorder, unspecified; Z91.81 History of falling; Z89.412 Acquired absence of left great toe; Z95.0 Presence of cardiac pacemaker; Z79.01 Long term (current) use of anticoagulants
CPT/HCPCS: 36415; 36430; 80048; 81001; 82040; 82947; 83036; 83735; 83880; 84134; 85014; 85018; 85025; 85027; 86850; 86900; 86901; 86920; 92523; 97112; 97116; 97163; 97165; 97530; 97542; J1815; J1938; J2003; J7050; P9016; Q0162; Q5106